=== PATIENT | female | born 1930 | race Caucasian/White ===

== ENCOUNTER 2021-05-23 21:29 | Emergency (ER) | payer OTHER ==
--- NOTE | 2021-05-23 22:40 | NUR ---
Pt BIB [facility] due to unwitnessed mechanical fall. Resides at [facility] and was found by staff. Unk downtime post fall. Pt is a/o x4. States she was trying to get up from couch and slipped due to footwear and landed on her buttocks. Pt c/o severe lower back pain post fall. Appears in no acute distress upon arrival.
[2021-05-23] MEDS ORDERED: DIPH-TET-PERTUS Vaccine 0.5 ML VIAL (ADACEL) I.M. ONE (23:30)
[2021-05-23] MEDS ORDERED: MORPHINE 2 MG/ML INJ. SYRINGE IM ONE (23:30)
--- NOTE | 2021-05-23 23:30 | NUR ---
ER at bedside examining patient.
--- NOTE | 2021-05-24 00:03 | NUR ---
Pt taken for CT imaging.
[2021-05-24 00:38] LABS: BASOPHILS # (AUTO) 0.1 K/uL (0.0-0.2); EOSINOPHILS # (AUTO) 0.1 K/uL (0.0-0.4); EOSINOPHILS % (AUTO) 1.7 % (0.0-4.0); HEMATOCRIT 45.7 % (36-48); HEMOGLOBIN 14.4 g/dL (12.0-16.0); LYMPHOCYTES # (AUTO) 0.8 K/uL (1.0-5.5); LYMPHOCYTES % (AUTO) 12.1 % (20.5-51.5); MEAN CORPUSCULAR HEMOGLOBIN 28 pg (27-31); MEAN CORPUSCULAR HGB CONC 32 % (32-36); MEAN CORPUSCULAR VOLUME 90 fL (79.0-98.0); MONOCYTES # (AUTO) 0.6 K/uL (0.0-1.0); MONOCYTES % (AUTO) 9.8 % (1.7-9.3); NEUTROPHILS # (AUTO) 4.7 K/uL (1.8-7.7); NEUTROPHILS % (AUTO) 75.4 % (40.0-70.0); PLATELET COUNT (AUTO) 163 K/uL (130-430); RED BLOOD CELL COUNT(AUTO) 5.09 MIL/uL (4.2-6.2); WHITE BLOOD COUNT (AUTO) 6.3 K/uL (4.8-10.8)
[2021-05-24 00:58] VITALS: BP_SYST 124
[2021-05-24 01:05] LABS: ANION GAP 10 (5-15); CALCIUM 9.7 mg/dL (8.4-11.0); CHLORIDE 103 mmol/L (98-107); CREATININE 1.07 mg/dL (0.55-1.30); GLUCOSE 108 mg/dL (70-99); POTASSIUM 3.8 mmol/L (3.5-5.1); SODIUM SERUM 143 mmol/L (136-145); UREA NITROGEN, BLOOD 18 mg/dL (8-21)
[2021-05-24 01:13] LABS: ALANINE AMINOTRANSFERASE 19 U/L (12-78); ALBUMIN 3.8 g/dL (3.4-4.8); ALCOHOL, BLOOD 3 mg/dL (<10); ASPARTATE AMINOTRANSFERASE 24 U/L (10-37); TOTAL BILIRUBIN 0.9 mg/dL (0.0-1.0)
--- NOTE | 2021-05-24 01:30 | NUR ---
Pt resting calmly in bed, no acute signs of distress. Denies any pain/discomfort at this time.
--- NOTE | 2021-05-24 02:30 | NUR ---
Spoke to daughter Elvia over the phone. Quesitons/Concerns answered regarding pt.
[2021-05-24 06:21] VITALS: BP_SYST 116
--- NOTE | 2021-05-24 06:24 | NUR ---
Patient given written and verbal discharge instructions and verbalizes understanding. ER MD Mahoney discussed with patient and daughter Elvia (Over the phone) the results and treatment provided. Patient in stable condition. ID arm band removed. Patient educated on pain management and to follow up with PMD. Opportunity for questions provided and answered. Daughter Elvia was notified regarding discharge tranportation. Pt picked up via wheelchair van, upon arrival to [facility], [employer] will provide walker and assistance will be provided.
== END 2021-05-24 06:21 | disposition home or self-care (01) ==
LOC: SED 21:29
DX: S09.90XA Unspecified injury of head, initial encounter (principal); S50.811A Abrasion of right forearm, initial encounter; W01.0XXA Fall on same level from slipping, tripping and stumbling without subsequent striking against object, initial encounter; Y93.89 Activity, other specified; Y92.098 Other place in other non-institutional residence as the place of occurrence of the external cause; Y99.8 Other external cause status
CPT/HCPCS: 36415; 70450; 71045; 72125; 76376; 80053; 84484; 85025; 90471; 90715; 93005; 96372; 99285; G0482; J2270; 99284